=== PATIENT | male | born 1985 | race Caucasian/White ===

== ENCOUNTER 2017-04-26 22:43 | Emergency (ER) | payer MEDICAID ==
[2017-04-27 04:53] VITALS: BP 106/74
== END 2017-04-27 04:53 | disposition home or self-care (01) ==
LOC: ED 22:43
DX: L02.11 Cutaneous abscess of neck (principal); Z79.899 Other long term (current) drug therapy
CPT/HCPCS: 90715; J0696

== ENCOUNTER 2018-11-10 17:54 | Emergency (ER) | payer OTHER ==
[~2018-11-10] VITALS: Ht 170.2 cm; Wt 65.8 kg
[2018-11-10 18:07] VITALS: BP 140/75; Ht 170.2 cm; Wt 65.8 kg
== END 2018-11-10 18:23 | disposition other institution (70) ==
LOC: ED 17:54
DX: Z02.89 Encounter for other administrative examinations (principal)

== ENCOUNTER 2019-04-29 17:30 | Emergency (ER) | payer OTHER ==
[~2019-04-29] VITALS: Ht 172.7 cm; Wt 68.0 kg
[2019-04-29 17:31] VITALS: BP 141/82; Ht 172.7 cm; Wt 68.0 kg
== END 2019-04-29 17:50 | disposition other institution (70) ==
LOC: ED 17:30
DX: Z02.89 Encounter for other administrative examinations (principal)

== ENCOUNTER 2020-07-26 15:36 | Emergency (ER) | payer OTHER ==
[~2020-07-26] VITALS: Ht 165.1 cm; Wt 63.5 kg
[2020-07-26 15:39] VITALS: Ht 165.1 cm; Wt 63.5 kg
[2020-07-26 16:01] VITALS: BP 121/84
== END 2020-07-26 16:02 | disposition other institution (70) ==
LOC: ED 15:36
DX: Z02.89 Encounter for other administrative examinations (principal)